=== PATIENT | male | born 1960 | race Native Hawaiian/Other Pacific Islander ===

== ENCOUNTER 2016-07-05 14:06 | Emergency (ER) | payer OTHER ==
[2016-07-05] MEDS ORDERED: DIPHTH,PERTUSS(ACELL),TET VAC 0.5 ML VIAL IM V ONE (14:51)
--- NOTE | 2016-07-05 15:11 | RAD ---
Exam: Three-view right finger COMPARISON: None INDICATION: Right pinky finger got caught in machine at work today, laceration. FINDINGS: PA, lateral and oblique views of the right fifth finger were obtained. There is soft tissue irregularity along the lateral aspect of the fifth finger centered about the middle phalanx compatible with laceration and soft tissue injury. No radiopaque foreign body is identified. There is mild hyperflexion at the DIP joint, and there is mild deformity of the base of the distal phalanx most compatible with an old healed intra-articular fracture. Alignment is otherwise maintained in no acute displaced fracture is identified. IMPRESSION: Soft tissue injury, however no acute osseous abnormality is identified in the right fifth finger.
== END 2016-07-05 16:18 | disposition home or self-care (01) ==
LOC: ED 14:06
DX: S61.216A Laceration without foreign body of right little finger without damage to nail, initial encounter (principal); Z23 Encounter for immunization; W30.89XA Contact with other specified agricultural machinery, initial encounter; Y93.H9 Activity, other involving exterior property and land maintenance, building and construction; Y92.74 Orchard as the place of occurrence of the external cause; Y99.0 Civilian activity done for income or pay